=== PATIENT | female | born 1960 | race Caucasian/White ===

== ENCOUNTER → 2016-08-13 14:00 | Outpatient (CLI) | payer BC ==
[~2016-08-13 14:00] MED LIST: BENADRYL25 MG PO; CHLOR-TRIMETON4 MG PO; HYDROCODON-ACE1 EAC7 PO; HYDROCODONE-APA1 TAB PO; MAXALT10 MG PO; NEURONTIN600 MG PO; OMEPRAZOLE20 M1 PO; ROBAXIN-750750 MG PO; TOPAMAX50 MG PO; TYLENOL PM1 TAB PO; VITAMIN B COMPL1 TAB PO; ZYRTEC10 MG PO
== END | disposition home or self-care (01) ==
LOC: D.MRI 14:00
DX: M25.561 Pain in right knee (principal)

== ENCOUNTER 2016-09-10 05:14 | Day surgery (SDC) | payer BC ==
[2016-09-09 10:57] LABS: HEMATOCRIT 38.7 % (36.0-48.0); HEMOGLOBIN 12.9 g/dL (12-16); MCH 30.1 pg (26.0-34.0); MCHC 33.3 g/dL (31.0-37.0); MCV 90.2 fL (80.0-100.0); MEAN PLATELET VOLUME 9.3 fL (7.4-10.4); RBC 4.29 10x6/uL (4.00-5.40); RDW 13.8 % (11.5-14.5); WBC 6.6 10x3/uL (4.8-10.8)
[~2016-09-10] VITALS: Ht 167.6 cm; Wt 84.4 kg
[~2016-09-10 05:14] MED LIST changes: -HYDROCODONE-APA1 TAB PO
[2016-09-10 07:58] VITALS: BP 115/78; Ht 167.6 cm; Wt 84.4 kg
[2016-09-10] MEDS ORDERED: HYDROCODONE-APA1 TAB PO (10:32)
--- NOTE | 2016-09-10 10:38 | NUR ---
DEMER[facility] ADMIN FOR SHAKING AND THE PATIENT REPORTS IMPROVMENT AFTER ADMINISTRATION
--- NOTE | 2016-09-10 10:39 | NUR ---
THE PATIENT HAD NERVE BLOCKS X3 FOR PROCEEDURE
--- NOTE | 2016-09-10 11:53 | NUR ---
IV DC WITH CATHER TIP INTACT
--- NOTE | 2016-09-10 12:58 | OP ---
PATIENT NAME: CRISTIANA PERSAUD MEDICAL RECORD: [id number] :64 LOCATION:SLIME ADMISSION DATE: SURGEON: NUNU INIGUEZ MD DATE OF OPERATION: 09/10/2016 PREOPERATIVE DIAGNOSIS: Right knee medial subchondral tibial fracture, right medial femoral condyle chondromalacia and medial meniscus tear. POSTOPERATIVE DIAGNOSES: Right knee medial subchondral tibial fracture, right medial femoral condyle chondromalacia and medial meniscus tear. PROCEDURES PERFORMED: Right knee partial medial meniscectomy, chondroplasty with osteochondral picking on the medial femoral condyle lesion, which was grade III-IV and then subchondroplasty to the medial tibial plateau lesion. SURGEON: Joe Iniguez MD ANESTHESIA: General with a block for postop pain. CONDITION: She tolerated the procedure well and was transferred to the recovery room in stable condition at termination of the procedure. INDICATIONS: This is a 56-year-old female that has been having significant right knee pain. It has been getting progressively worse. We discussed the options. Her MRI scan was consistent with subchondral lesion under the central medial portion of her plateau, what looked like grade III-IV chondromalacia lesion and possible medial meniscus tear. We discussed doing subchondroplasty and possibly microfracture chondroplasty on the lesion as well as the anything further in the knee. She understood and wished to proceed. We had discussed also that there certainly is risk of increasing arthritis and increasing pain on the knee. She understood. OPERATIVE REPORT: The patient was taken to the operating room, placed in a supine position. General anesthesia was obtained. She did have a block placed in the preop holding area. In the operating room, the right knee was confirmed to be the correct knee. It was prepped and draped in the normal fashion. Procedure was begun by making portal sites and injecting them with 0.25% Marcaine with epinephrine. I established the anterolateral portal for the scope and inflow, superior medial for the outflow. The patellofemoral joint was inspected where there were no significant lesions. Dropping down to the medial joint, she has a fairly significant medial femoral condyle lesion. This was noted. The medial meniscus had what looked like a radial tear posteriorly. I did establish an anterior medial portal under direct visualization. I did at this juncture do some debridement around the osteochondral lesion. In doing so, there was a small, probably 4-5 mm x 3-5 mm loose body that floated into the screen, this was removed. I then proceeded to check this, it had a small radial tear. I did debride this medially with straight biter and then cleaned this up with a shaver. I then went to the notch, her ACL and PCL were notably intact. Going in a [id number] position and checking laterally, her lateral side looked very good overall. No cartilage tear on the lateral meniscus, some small grade I-II ____ type changes on the lateral tibial plateau and lateral femoral condyle. I went back, took an awl to the area of the osteochondral lesion ____ made multiple small taps into this area around the periphery and essentially to get some bleeding. After this was accomplished, I went back, pulled the scope out, placed the trocar from lateral to medial under C-arm visualization, put the OPERATIVE REPORT [id number] CRISTIANA PERSAUD trocar in the central medial portion where the lesion was and then filled it with 3 cc of AccuFill calcium phosphate, this was placed in this lesion. There was appearance of the radiopaque dye showed up somewhat in this area. There was no significant pressure in putting it in. This trocar was left in place for 10 minutes while the cement dried. Once this was accomplished, I went back, checked the knee again to ensure that there was none of this calcium phosphate had gotten to the knee, which it did not. I also did note some blood formation around the osteochondral picking or all area. I therefore brought the case to a close. She was closed with 3-0 Prolene, placed in a knee immobilizer because of the blocks. We will have her started on range of motion. We will limit her weightbearing and see her back in the office in about 2 weeks. TRANSINT:[id number] Voice Confirmation ID: [id number] DOCUMENT ID: [id number] NUNU INIGUEZ MD at 1258 CC: [id number] DICTATION DATE: 09/10/16 1030 CMM OPERATOR: 09/10/16 [address] [facility] [address] [place] [id number]
== END 2016-09-10 12:00 | disposition home or self-care (01) ==
LOC: D.OPS 05:14 → D.PAN 07:00 → D.OPS 08:30
PROVIDERS: Anesthesiology
DX: S82.141A Displaced bicondylar fracture of right tibia, initial encounter for closed fracture (principal); S83.241A Other tear of medial meniscus, current injury, right knee, initial encounter; M23.41 Loose body in knee, right knee